=== PATIENT | female | born 1950 | race Caucasian/White ===

== ENCOUNTER 2019-04-12 17:38 | Emergency (ER) | payer MEDICARE ==
[~2019-04-12] VITALS: Ht 160 cm; Wt 67.6 kg
--- OUTSIDE RECORDS SUMMARY | ~2019-04-12 | XMS | Clinical Summary ---
Demographics + + + | Address | [address] | | | [place] [address] | + + + | Home Phone | | + + + | Preferred Language | Unknown | + + + | Marital Status | Unknown | + + + | Jain Affiliation | Unknown | + + + | Race | Unknown | + + + | Ethnic Group | Unknown | + + + Author + + + | Author | [facility] | | | and [place] | + + + | Organization | [facility] | | | and [place] | + + + | Address | Unknown | + + + | Phone | Unavailable | + + + Support + + +---------+ + | Name | Relationship | Address | Phone | + + +---------+ + | Rad Borjas | JERARDO | Unknown | | + + +---------+ + | Nancy Delgado | ECON | Unknown | | + + +---------+ + | Sherrill Singer | ECON | Unknown | | + + +---------+ + Care Team Providers + +------+ + | Care Truck Spotter Name | Role | Phone | + +------+ + PCP | Unavailable | + +------+ + Allergies No Known Allergies Medications + +------+ +---------+------+------+-------+ | Medication | Sig | Dispensed | Refills | Star | End | Statu | | | | | | t | Date | s | | | | | | Date | | | + +------+ +---------+------+------+-------+ | Vitamins A & D (A | [facility]S | | 0 | 09/1 | | Activ | | & D PO) | | | | 9/20 | | e | | | | | | 12 | | | + +------+ +---------+------+------+-------+ | [place]-[facility] Fatty | [facility] | | 0 | 09/1 | | Activ | | Acids (FISH OIL) | | | | 9/20 | | e | | 1200 MG CAPS | | | | 12 | | | + +------+ +---------+------+------+-------+ | Sodium & Potassium | TABS | | 0 | 09/1 | | Activ | | Bicarbonate | | | | 9/20 | | e | | (BRIDGET-AID PO) | | | | 12 | | | + +------+ +---------+------+------+-------+ Active Problems + + + | Problem | Noted Date | + + + | VARICOSE VEINS LOWER EXTREMITIES W/OTH COMPS | 03/05/2012 | + + + + + | 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 | + + Last Filed Vital Signs + + + + | Vital Sign | Reading | Time Taken | + + + + | Blood Pressure | 100/54 | 03/05/2012 0000 PDT | + + + + | Pulse | - | - | + + + + | Temperature | - | - | + + + + | Respiratory Rate | - | - | + + + + | Oxygen Saturation | - | - | + + + + | Inhaled Oxygen | - | - | | Concentration | | | + + + + | Weight | 74.8 kg (165 lb) | 03/05/2012 0000 PDT | + + + + | Height | - | - | + + + + | Body Mass Index | - | - | + + + + Plan of Treatment + + + + + | Health Maintenance | Due Date | Last Done | Comments | + + + + + | Vaccine: | | | | | Dtap/Tdap/Td (1 - | 1 | | | | Tdap) | | | | + + + + + | Vaccine: Zoster (1 | | | | | of 2) | 2 | | | + + + + + | Breast Cancer | | | | | Screening | 7 | | | + + + + + | Vaccine: | | | | | Pneumococcal 65+ | 7 | | | | Low/Medium Risk (1 | | | | | of 2 - PCV13) | | | | + + + + + | Vaccine: Influenza | | | | | (#1) | 9 | | | + + + + + Results Not on filefrom Last 3 Months"
--- OUTSIDE RECORDS SUMMARY | ~2019-04-12 | XMS | Clinical Summary ---
Demographics + + + | Address | [address] | | | [place] [address] | + + + | Home Phone | | + + + | Preferred Language | Unknown | + + + | Marital Status | Unknown | + + + | Alevism Affiliation | Unknown | + + + | Race | Unknown | + + + | Ethnic Group | Unknown | + + + Author + + + | Author | [facility] | | | and [place] | + + + | Organization | [facility] | | | and [...] Team Providers + +------+ + | Care Custom Tailor Apprentice Name | Role | Phone | + [...] | | | + +------+ +---------+------+------+-------+ | [place] | [facility] | | 0 | [...] + + + | 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
== END 2019-04-12 18:09 | disposition home or self-care (01) ==
LOC: ED 17:38
PROC: 0HQ1XZZ Repair Face Skin, External Approach (ICD-10-PCS; principal; 2019-04-12)
DX: S01.412A Laceration without foreign body of left cheek and temporomandibular area, initial encounter (principal); X58.XXXA Exposure to other specified factors, initial encounter
CPT/HCPCS: 12011; 90471; 90715; 99282-25